=== PATIENT | female | born 1940 | race Caucasian/White ===

== ENCOUNTER 2023-07-15 05:29 | Inpatient (IN) | payer MEDICARE, SELFPAY ==
[2023-07-15] VITALS (7 sets, daily range): BP systolic 124–156; BP diastolic 53–91; PULSE 69–81; RESP 16–18; TEMP 36.6–36.9; O2SAT 94–96; BMI 39.2
[2023-07-15] MEDS: 0.9% Saline Lock 10 ML Syringe IV (05:21)
--- NOTE | 2023-07-15 05:44 | HP.PCM.HOS_ITS ---
HPI - General General Date of Admission: 07/15/23 Date of Service: 07/15/23 Chief Complaint: right hip HPI Narrative JULIET DAVIDSON, is a 83 F with a significant history of hypertension; diabetes mellitus on metformin; history of cardiac disease with repair as a teenager; right hip replacement; and left knee replacements who presents who presented to [facility] with right hip pain. Patient stepped out off her vehicle with her left leg first. Then she attempted to move her right leg out from the vehicle and had a popping sound from her right hip. She then had excruciating pain to her right hip. Imaging at [facility] showed that the patient had a dislocated right hip. [facility] Medical History Diabetes mellitus Hypertension Home Medications atorvastatin 10 mg tablet 10 mg PO DAILY cholesterol 07/15/23 [History Last Taken 07/14/23] hydrochlorothiazide 25 mg tablet 25 mg PO DAILY 07/15/23 [History Last Taken 07/14/23] lisinopril 20 mg tablet 20 mg PO BID hypertension 07/15/23 [History Last Taken 07/14/23] metformin 500 mg tablet 500 mg PO BID 07/15/23 [History Last Taken 07/14/23] metoprolol succinate 100 mg tablet,extended release 24 hr 100 mg PO DAILY 07/15/23 [History Last Taken 07/14/23] Allergy/AdvReac Type Severity Reaction Status Date / Time No Known Allergies Allergy Verified 07/15/23 04:38 Family History Other Heart disease Surgical History History of arthroplasty of left knee S/P total right hip arthroplasty Social History Smoking Status: Never smoker ROS ROS Narrative Pertinent positives and pertinent negatives as noted in HPI. All other systems were reviewed and are negative Vital Signs Vital Signs Vital Signs: 07/15/23 04:30 07/15/23 04:34 Temperature 98.1 F Temperature Source Oral Pulse Rate 78 Respiratory Rate 18 Respiratory Effort Normal Non-Labored Respiratory Depth Normal Respiratory Pattern Normal Blood Pressure 156/89 H Blood Pressure Mean 111 Blood Pressure Source Monitor Blood Pressure Position Semi-Fowlers Blood Pressure Location Right Arm Pulse Ox 94 Oxygen Delivery Method Room Air Room Air Weight Weight: 97.2 kg Body Mass Index (BMI) 39.2 Physical Exam Narrative Physical exam: General: Well-nourished, well-developed. Head: Normocephalic, atraumatic, no tenderness Eyes: Vision is grossly intact. EOMI ENT, no trauma, moist mucous membranes, no rhinorrhea Neck: Nontender, No thyromegaly. CVS: Regular rate and rhythm. S1-S2 present. No murmur, gallop or rub. Respiratory : clear to auscultation bilaterally, chest wall nontender Abdomen: Soft, nontender, nondistended, normal bowel sounds, no masses : Deferred Back: Nontender, no CVA tenderness Extremities: Nontender bilateral hip Skin: Normal color, no trauma, abrasions Neuro: Alert, oriented, cranial nerves II through XII grossly intact. Psychiatry: Normal mood. Normal affect. Not depressed. Not anxious. Assessment & Plan Assessment/Plan (1) Hip dislocation, right: QUALIFIERS: Encounter type: initial encounter Qualified Code(s): S73.004A - Unspecified dislocation of right hip, initial encounter (2) Diabetes mellitus, type 2: QUALIFIERS: Diabetes mellitus detention insulin use: without detention use Diabetes mellitus complication status: without complication Qualified Code(s): E11.9 - Type 2 diabetes mellitus without complications (3) Hypertension: QUALIFIERS: Hypertension type: primary hypertension Qualified Code(s): I10 - Essential (primary) hypertension PLAN: Plan Right hip dislocation Inpatient consult for orthopedic surgery. Morphine IV and oxycodone as needed ordered. Tylenol as needed ordered. Bowel protocol and antiemetics IV ordered. Keep n.p.o. While n.p.o. lactated Ringer's ordered. Check vitamin D level. ACS NSQIP surgical risk calculator with below surgical risk. Hypertension Blood pressure is not within goal Home blood pressure medication continued. Trend blood pressure and adjust blood pressure medications. Diabetes Mellitus Monitor Accu-Cheks Correction scale insulin ordered. DVT prophylaxis SCD Time spent in the patient's overall evaluation,decision-making process, review of diagnostic data, adjustment of management, discussion with other providers, nursing and ancillary staff involved in patient's care documentation, 50 minutes. Charges/Coding Visit Charges Inpatient E&M: 36458 Init Hosp L2
[2023-07-15] MEDS: Acetaminophen 325 MG Tablet 650 MG PO ×2 (06:30→20:38)
[2023-07-15] MEDS: oxyCODONE 5 MG Tablet PO (06:30)
[2023-07-15] MEDS: 0.9% Normal Saline (1000mL) 1,000 ML 75 ML IV ×2 (06:31→20:38)
[2023-07-15] MEDS: Insulin Lispro 100 UNIT/ML INSULN.PEN SC ×3 (06:45→20:37)
[2023-07-15 07:37] LABS: AST(SGOT) 22 U/L (15-37); Alanine Aminotransfer ALT/SGPT 19 U/L (13-56); Albumin, Serum 3.1 g/dL (3.2-5.0); Alkaline Phosphatase 72 U/L (45-117); Anion Gap 5 (5-15); BUN 14 mg/dL (7-18); Calcium,Total 8.5 mg/dL (8.5-10.1); Chloride 107 mmol/L (98-107); Creatinine, Serum 0.87 mg/dL (0.55-1.02); EST Glomerular Filtration Rate 66 mL/min (>60); Est Glom Filt Rate - Afr Amer 79 mL/min (>60); Estimated Creatinine Clearance 38.07 ml/min; Globulin 3.2 g/dL (2.2-4.2); Glucose 156 mg/dL (74-106); Potassium 4.1 mmol/L (3.5-5.1); Protein, Total 6.3 g/dL (6.4-8.2); Sodium Level 138 mmol/L (136-145)
--- NOTE | 2023-07-15 07:51 | PCM.PN.HOSP ---
Subjective Subjective Was try to get out of her car and her left leg was already out but then her right hip just dislocated. The hip was replaced about 12 years ago. Is never had this from before. Objective Data Objective Data Vital Signs: Vital Signs Temp Pulse Resp BP Pulse Ox O2 Del Method 36.7 C 78 18 156/89 H 94 Room Air 07/15/23 04:30 07/15/23 04:30 07/15/23 04:30 07/15/23 04:30 07/15/23 04:30 07/15/23 04:34 Oxygen Delivery Method Room Air Weight: 97.2 kg Body Mass Index (BMI) 39.2 Lab / Micro Data 07/15/23 06:57 Labs: Laboratory Results - last 24 hr 07/15/23 06:57: Sodium 138, Potassium 4.1, Chloride 107, Carbon Dioxide 26.0, Anion Gap 5, BUN 14, Creatinine 0.87, Estim Creat Clear Calc 38.07, Est GFR (MDRD) Af Amer 79, Est GFR (MDRD) Non-Af 66, BUN/Creatinine Ratio 16.0, Glucose 156 H, Calcium 8.5, Total Bilirubin 0.40, AST 22, ALT 19, Alkaline Phosphatase 72, Total Protein 6.3 L, Albumin 3.1 L, Globulin 3.2, Albumin/Globulin Ratio 1.0 Physical Exam Const alert and no apparent distress HEENT head/scalp atraumatic Neuro no focal motor deficits Sensorium / Orientation: awake and alert Assessment & Plan Assessment/Plan (1) Hip dislocation, right: QUALIFIERS: Encounter type: initial encounter Qualified Code(s): S73.004A - Unspecified dislocation of right hip, initial encounter (2) Diabetes mellitus, type 2: QUALIFIERS: Diabetes mellitus complication status: without complication 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 Surgical intervention pending. Morphine IV and oxycodone as needed ordered. Tylenol as needed ordered. Bowel protocol and antiemetics IV ordered. Keep n.p.o. While n.p.o. lactated Ringer's ordered. Vitamin D level pending Hypertension Blood pressure is not within goal Home blood pressure medication continued. Trend blood pressure and adjust blood pressure medications. Diabetes Mellitus Monitor Accu-Cheks Correction scale insulin ordered. DVT prophylaxis SCD Charges/Coding Visit Charges Inpatient E&M: 25093 Subs Hosp L1
[2023-07-15 08:07] LABS: Bedside Glucose 158 mg/dL (74-106)
[2023-07-15] MEDS: Metoprolol(XL)Succ 100 MG Tablet PO (12:00)
[2023-07-15] MEDS: Lisinopril 20 MG Tablet PO ×2 (12:02→20:38)
[2023-07-15] MEDS: Senna/Docusate Sodium 1 Tablet 2 TABLET PO ×2 (12:02→20:39)
[2023-07-15] MEDS: hydroCHLOROthiazide 25 MG Tablet PO (12:02)
[2023-07-15 13:19] LABS: Bedside Glucose 281 mg/dL (74-106)
--- NOTE | 2023-07-15 14:20 | CASEMGMT ---
RN ABEBA Face to Face with patient for initial transition planning/care coordination assessment. RN CM introduced self and role at [facility]. Patient lying in bed, alert and oriented. Patient willing to participate in assessment and is able to answer all questions appropriately. Care providers, pharmacy, and demographics verified. Patient wishes to discharge home with possible HHC vs SNF pending progress with therapy. Patient states she has no further needs or concerns at this time. CM to follow for discharge planning needs that may arise. PCP: Jason Turner Medical Specialists: none [facility] [place] Insurance: [employer] [facility] Prescription Benefit: yes Living Will/HPOA: yes son Brandon Wilson LNOK: , son, daughter Living Arrangements: Patient lives with in a single story home with 3 steps and railing x2 to enter. Patient was independent at home. Transportation: self, DME/HHC: Patient has walk in tub, raised toilet, cane, grab bars, walker at home. No previous HHC. Patient has been to [facility] in the past and is preferred SNF if needed at discharge. Disposition Plan: TBD, HHC vs SNF pending progress with therapy after surgery. Tayla AMAYA, RN, CM
--- NOTE | 2023-07-15 15:51 | CON.PCM.OR_ITS ---
HPI Consult Data Date of Consult: 07/15/23 PCP / Referring MD: LIYAH FARRELL HPI Narrative Reason for Consultation: Right hip pain HPI Narrative: JULIET DAVIDSON, is a 83 F who presents with right hip pain. Patient was seen and evaluated last evening in the emergency department. She is a 3 times dislocator. She had multiple times in the emergency department today reduce her head. She also has a concomitant greater trochanteric hip fracture on this dislocation. X-rays from 2020 reviewed showing no evidence of greater trochanteric hip fracture at that time. Patient's last 2 dislocations were associated with atraumatic hip flexion activities. Last evening she was getting out of a car when she lifted her leg to clear the rail and had a dislocation. She denies any numbness and tingling today. She is comfortable sitting up in bed but does report pain in her buttocks. She denies any associated numbness and tingling. Based on her failed dislocation attempts we elected to do a open reduction with concerns that there is soft tissue blocking the reduction related to her greater trochanteric fracture. [facility] Medical History (Updated 07/15/23 @ 16:[address] Edison Darby MD) Diabetes mellitus Greater trochanteric bursitis of right hip Hypertension Home Medications atorvastatin 10 mg tablet 10 mg PO DAILY cholesterol 07/15/23 [History Last Taken 07/14/23] hydrochlorothiazide 25 mg tablet 25 mg PO DAILY 07/15/23 [History Last Taken 07/14/23] lisinopril 20 mg tablet 20 mg PO BID hypertension 07/15/23 [History Last Taken 07/14/23] metformin 500 mg tablet 500 mg PO BID 07/15/23 [History Last Taken 07/14/23] metoprolol succinate 100 mg tablet,extended release 24 hr 100 mg PO DAILY 07/15/23 [History Last Taken 07/14/23] Allergy/AdvReac Type Severity Reaction Status Date / Time No Known Allergies Allergy Verified 07/15/23 04:38 Family History Other Heart disease Surgical History History of arthroplasty of left knee S/P total right hip arthroplasty Social History Smoking Status: Never smoker ROS Constitutional Constitutional: Reports systems reviewed and no addt'l complaints, except as documented Eyes Eyes: Reports systems reviewed and no addt'l complaints, except as documented ENT HEENT: Reports systems reviewed and no addt'l complaints, except as documented Cardiovascular Cardiovascular: Reports systems reviewed and no addt'l complaints, except as do cumented Respiratory/Chest Respiratory/Chest: Reports systems reviewed and no addt'l complaints, except as documented Gastrointestinal Gastrointestinal: Reports systems reviewed and no addt'l complaints, except as documented Genitourinary Genitourinary: Reports systems reviewed and no addt'l complaints, except as documented Musculoskeletal Musculoskeletal: Reports systems reviewed and no addt'l complaints, except as documented Integumentary Integumentary: Reports systems reviewed and no addt'l complaints, except as documented Neurologic Neurologic: Reports systems reviewed and no addt'l complaints, except as documented Psychiatric Psychiatric: Reports systems reviewed and no addt'l complaints, except as documented Endocrine Endocrinology: Reports systems reviewed and no addt'l complaints, except as documented Hematologic/Lymphatic Hematologic/Lymphatic: Reports systems reviewed and no addt'l complaints, except as documented Allergic/Immunologic Allergic/Immunologic: Reports systems reviewed and no addt'l complaints, except as documented Vital Signs Vital Signs Vital Signs: 07/15/23 04:30 07/15/23 04:34 07/15/23 08:05 Temperature 98.1 F Temperature Source Oral Pulse Rate 78 Pulse Strength Normal (2+) Respiratory Rate 18 Respiratory Effort Normal Non-Labored Respiratory Depth Normal Respiratory Pattern Normal Blood Pressure 156/89 H Blood Pressure Mean 111 Blood Pressure Source Monitor Blood Pressure Position Semi-Fowlers Blood Pressure Location Right Arm Pulse Ox 94 Oxygen Delivery Method Room Air Room Air 07/15/23 08:06 07/15/23 10:15 07/15/23 12:00 Temperature 98.4 F Temperature Source Oral Pulse Rate 69 81 Pulse Strength Respiratory Rate 16 Respiratory Effort Normal Non-Labored Respiratory Depth Normal Respiratory Pattern Normal Blood Pressure 124/58 H 131/53 H Blood Pressure Mean 80 Blood Pressure Source Monitor Blood Pressure Position Semi-Fowlers Blood Pressure Location Right Arm Pulse Ox 96 Oxygen Delivery Method Room Air Room Air 07/15/23 14:24 Temperature Temperature Source Pulse Rate Pulse Strength Respiratory Rate Respiratory Effort Respiratory Depth Respiratory Pattern Blood Pressure Blood Pressure Mean Blood Pressure Source Blood Pressure Position Blood Pressure Location Pulse Ox 96 Oxygen Delivery Method Room Air Weight Weight: 214 lb 4.629 oz Body Mass Index (BMI) 39.2 Physical Exam Const alert and oriented x3 General Appearance: cooperative HEENT normocephalic Eyes PERRL Neck no JVD General: trachea midline Resp normal respiratory effort Cardio Cardio Narrative: Regular pulse rate based on pedal pulses GI non-distended GI Narrative: Morbidly obese Extremity Extremity Narrative: Right lower extremity: Shortened externally rotated. Positive dorsiflexion neutral plantarflexion. Neurovascular intact distally. Sensations intact light touch saphenous, sural, superficial peroneal, deep peroneal tibial nerve distributions. Pain with logroll. Skin no rashes or lesions noted and no wounds Neuro moves all extremities Speech: Negative for speech abnormal Psych mental status grossly normal and affect normal Medical Records Data Attestation: I reviewed the patient's medical records Lab / Micro Data Attestation: I reviewed the patient's lab results. 07/15/23 06:57 Labs: Laboratory Results - last 24 hr 07/15/23 06:40: POC Glucose 158 H 07/15/23 06:57: Sodium 138, Potassium 4.1, Chloride 107, Carbon Dioxide 26.0, Anion Gap 5, BUN 14, Creatinine 0.87, Estim Creat Clear Calc 38.07, Est GFR (MDRD) Af Amer 79, Est GFR (MDRD) Non-Af 66, BUN/Creatinine Ratio 16.0, Glucose 156 H, Calcium 8.5, Total Bilirubin 0.40, AST 22, ALT 19, Alkaline Phosphatase 72, Total Protein 6.3 L, Albumin 3.1 L, Globulin 3.2, Albumin/Globulin Ratio 1.0 07/15/23 12:06: POC Glucose 281 H Outside labs reviewed. Hemoglobin 11.7. Absolute lymphocyte 0.7. Remainder of labs in paper chart from outside institution [facility] Outside x-rays were reviewed consistent with posterior superior dislocated total replacement with greater trochanteric hip fracture. Assessment & Plan Assessment/Plan (1) Hip dislocation, right: QUALIFIERS: Encounter type: initial encounter Qualified Code(s): S73.004A - Unspecified dislocation of right hip, initial encounter PLAN: Natural history of the disease process was discussed with the patient. We also discussed this yesterday in the emergency department after a failed dislocation. Based on patient's multiple dislocations and inability to reduce with after 2 episodes of sedation in the emergency department I have discussed with the patient proceeding with open reduction and revision of the hip replacement with open reduction internal fixation of the greater trochanteric hip fracture. We discussed that we will do what is appropriate in order to obtain appropriate stability for the patient I did explain the patient this could be anything from a headliner exchange to removal of the acetabular and femoral components in order to adequately obtain a stable hip on the table. We will proceed with the posterior approach. Risk and benefits of the procedure were discussed patient clean but on tube loss, DVTs, PEs, nervous damage, fashion, the risk of anesthesia include loss of life. I discussed the patient that her albumin is low as well as her absolute lymphocytes. We will need to address his with perioperative nourishment using nourishment shakes. Additionally patient has hemoglobin of 11.7 consistent with anemia of life place patient on ferrous sulfate and folic acid to help address anticipated blood loss. Patient and her who is at bedside demonstrate understanding wish to proceed. There were additional family members in the room agreed with the treatment plan. 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 (3) Hypertension: QUALIFIERS: Hypertension type: primary hypertension Qualified Code(s): I10 - Essential (primary) hypertension PLAN: Per primary service (4) Malnourished: PLAN: Patient's orthopedic nurse and labs including albumin of 3.1 and after the lymphocytes of 0.7 are consistent with preoperative malnourishment we will focus on perioperative shakes. (5) Anemia: PLAN: I am going to start folic acid and ferrous sulfate today. (6) Fracture of greater trochanter of right femur: PLAN: Plan is for ORIF in conjunction with surgery.
[2023-07-15 16:35] LABS: Hemoglobin A1c 6.7 % (3.8-5.6)
[2023-07-15] MEDS: Ferrous Sulfate 325 MG Tablet PO (17:56)
[2023-07-15 18:25] LABS: Bedside Glucose 84 mg/dL (74-106)
[2023-07-15] MEDS: Atorvastatin Calcium 10 MG Tablet PO (20:45)
[2023-07-15] MEDS: Miconazole Nitrate 43 GM Bottle 1 APPLIC TOPICAL (20:45)
[2023-07-15 22:09] LABS: Bedside Glucose 219 mg/dL (74-106)
[2023-07-16] VITALS (13 sets, daily range): BP systolic 116–174; BP diastolic 47–99; PULSE 69–100; RESP 16–20; TEMP 36.1–36.8; O2SAT 93–99; BMI 39.8
[2023-07-16 03:41] LABS: Absolute Lymphocyte Count 1.36 X10^3/uL (0.83-4.51); Basophil# 0.04 X10^3/uL; Basophil% 0.5 % (0-1); Eosinophil# 0.24 X10^3/uL; Eosinophils% 2.8 % (0-5); Hematocrit 35.1 % (37-47); Lymphocyte # 1.36 X10^3/ul (0.83-4.51); Lymphocyte % 16.1 % (19-41); Mean Corp Hgb Conc 31.3 g/dL (32-36); Mean Corpuscular Hgb 30.6 pg (27.0-32.0); Mean Corpuscular Volume 97.8 fL (81-99); Mean Platelet Vol. 8.5 fl (6.2-12.0); Monocyte# 0.78 X10^3/uL; Monocyte% 9.2 % (0-10); NRBC Flagged by Analyzer 0 % (0-5); Neutrophil % 70.9 % (47-70); Platelet Count 295 K/mm3 (150-450); RBC Distribution Width CV 13.2 % (11.6-14.6); RBC Distribution Width SD 47.4 fl (35.1-43.9); Red Blood Count 3.59 M/mm3 (4.2-5.4); White Blood Count 8.5 K/mm3 (4.4-11.0)
[2023-07-16 04:03] LABS: Anion Gap 6 (5-15); BUN 13 mg/dL (7-18); BUN/Creat Ratio 16.5 RATIO (10-20); Calcium,Total 8.6 mg/dL (8.5-10.1); Chloride 108 mmol/L (98-107); Creatinine, Serum 0.79 mg/dL (0.55-1.02); EST Glomerular Filtration Rate 74 mL/min (>60); Est Glom Filt Rate - Afr Amer 90 mL/min (>60); Estimated Creatinine Clearance 33.12 ml/min; Glucose 138 mg/dL (74-106); Potassium 3.9 mmol/L (3.5-5.1); Sodium Level 140 mmol/L (136-145)
[2023-07-16] MEDS: Acetaminophen 325 MG Tablet 650 MG PO (04:35)
--- NOTE | 2023-07-16 08:00 | PN.HOSP_ITS ---
Reason for Visit Reason for Visit: Diagnoses Anemia, unspecified (07/15/23) Type 2 diabetes mellitus without complications (07/15/23) Unspecified protein-calorie malnutrition (07/15/23) Essential (primary) hypertension (07/15/23) Displaced fracture of greater trochanter of right femur, initial encounter for closed fracture (07/15/23) Unspecified dislocation of right hip, initial encounter (07/15/23) Subjective Subjective Feeling well postoperatively. Objective Data Objective Data Vital Signs: Vital Signs Temp Pulse Resp BP Pulse Ox O2 Del Method 36.6 C 78 20 H 144/88 H 95 Room Air 07/16/23 06:00 07/16/23 06:00 07/16/23 06:00 07/16/23 06:00 07/16/23 07:49 07/16/23 07:49 Oxygen Delivery Method Room Air Weight: 98.2 kg Body Mass Index (BMI) 39.8 Intake & Output: Intake and Output for Last 24 Hours 07/14/23 07/15/23 07/16/23 23:59 23:59 23:59 Intake Total 1360 / 1560 200 / 200 Output Total 450 / 1050 1700 / 1700 Balance 910 / 510 -1500 / -1500 Lab / Micro Data 07/16/23 03:30 07/16/23 03:30 Labs: Laboratory Results - last 24 hr 07/15/23 06:40: POC Glucose 158 H 07/15/23 06:57: Hemoglobin A1c 6.7 H 07/15/23 12:06: POC Glucose 281 H 07/15/23 17:38: POC Glucose 84 07/15/23 20:35: POC Glucose 219 H 07/16/23 03:30: WBC 8.5, RBC 3.59 L, Hgb 11.0 L, Hct 35.1 L, MCV 97.8, MCH 30.6, MCHC 31.3 L, RDW Std Deviation 47.4 H, RDW Coeff of Parker 13.2, Plt Count 295, MPV 8.5, Immature Gran % (Auto) 0.500, Neut % (Auto) 70.9 H, Lymph % (Auto) 16.1 L, [place] % (Auto) 9.2, Eos % (Auto) 2.8, Baso % (Auto) 0.5, Absolute Neuts (auto) 6.0, Absolute Lymphs (auto) 1.36, Nucleated RBC % 0, Sodium 140, Potassium 3.9, Chloride 108 H, Carbon Dioxide 26.0, Anion Gap 6, BUN 13, Creatinine 0.79, Estim Creat Clear Calc 33.12, Est GFR (MDRD) Af Amer 90, Est GFR (MDRD) Non-Af 74, BUN/Creatinine Ratio 16.5, Glucose 138 H, Calcium 8.6, Blood Type A POSITIVE, Antibody Screen NEGATIVE Physical Exam Const alert and no apparent distress Extremity Extremity Narrative: Right hip incision with dressing overlying. No surrounding erythema nor bruising noted Neuro Sensorium / Orientation: awake and alert Assessment & Plan Assessment/Plan (1) Hip dislocation, right: QUALIFIERS: Encounter type: initial encounter Qualified Code(s): S73.004A - Unspecified dislocation of right hip, initial encounter PLAN: Right hip dislocation, atraumatic. Inpatient consult for orthopedic surgery. Surgical intervention pending. Morphine IV and oxycodone as needed ordered. Tylenol as needed ordered. Bowel protocol and antiemetics IV ordered. Keep n.p.o. While n.p.o. lactated Ringer's ordered. Vitamin D level pending (2) Protein calorie malnutrition: QUALIFIERS: Protein-calorie malnutrition severity: unspecified severity Qualified Code(s): E46 - Unspecified protein-calorie malnutrition PLAN: Albumin 3.1. Add supplements. PLAN: Plan Chronic conditions: * Hypertension. Elevated. Continue HCTZ, lisinopril, metoprolol succinate * Diabetes Mellitus type 2: fair control. on SSI. resume metformin post- operatively. * obesity class II with BMI 39.8 kg/m2, complicates care and recovery. DVT prophylaxis SCD Charges/Coding Visit Charges Inpatient E&M: 05305 Subs Hosp L1
[2023-07-16] MEDS: Cefazolin 2 GM in 0.9% Normal Saline (100mL Bag) 100 ML IV (08:39)
[2023-07-16] MEDS: TRANEXAMIC ACID 2,000 MG, 0.9% Normal Saline (100mL Bag) 100 ML OPERA.SITE (10:03)
[2023-07-16] MEDS: JPS (Morphine 10mg/ml) OPERA.SITE (10:11)
--- NOTE | 2023-07-16 10:11 | OP.PCM_ITS ---
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 Patient's hip dislocation was entrapped in the proximal musculature complicating reduction even when open. Upon removal of femoral head trunnion was appropriate. Femoral and acetabular components well fixed Surgeon: Edison Darby fitter placer: Jaime Rodriguez Type of Anesthesia: General Anesthesiologist: Osmel Sage Special Medications: 2 g Ancef, 1 g TXA at incision, 1 g TXA closure, 10 mg Decadron, joint cocktail (5 mg Duramorph, 30 mL of 0.5% Ropivicaine, 1000 units of epinephrine, 30 mg of Toradol) Estimated Blood Loss (mL): 300 mL Fluids Replaced: 1000 mL crystalloid Description of Procedure: Implants used: 1. Kevin cobalt-chromium MDM liner alpha code D 2. Kevin X3 MDM insert 38 D 3. [place] cobalt-chromium 22.2 mm femoral head, +8 mm Procedure: On the date of the procedure patient's right hip was marked in the preoperative area. We then again confirmed the consent for the patient as well as risk of the procedure as noted in the consultation from yesterday. Patient demonstrated understanding and wished to proceed. She continues to report no neurologic deficits. At this time patient was then taken back to the operating room where they were transferred the table in the supine position. Anesthesia assumed control the C-spine and airway and remained controlled throughout the remainder of the procedure. At the patient was appropriately anesthetized a Luong catheter was placed due to patient's incontinence concerns for mobility postoperatively. Once the Luong was placed patient was placed in lateral decubitus position. Axillary roll was placed all bony prominences were identified well-padded. Patient was secured to the bed using the pegboard securing her lateral decubitus position. At this time the right lower extremity was then prepped in a sterile fashion while the surgeon scrubbed. Upon reentering the room the right lower extremity was draped in a standard orthopedic fashion. Timeout was called everyone agreed upon the side, the site, the procedure to be performed, patient's identity and antibiotics given. Incision was marked out using the previous incision and extending it proximally and distally along the femoral shaft. Incision was taken down through skin using sharp dissection. Bovie dissection was used to maintain hemostasis we dissected down to the fascia. Once we dissected down to the fascia we cleared the areas that we had a good cuff of tissue anterior and posteriorly to repair appropriately. Fascia was incised inline with the incision and a large amount of serosanguineous fluid was evacuated. Once this was completed we were able to visualize the implants and joint. The hip was superiorly posteriorly dislocated. We attempted a reduction to see what was blocking the reduction and the left liner as well as the abductors which were acting as trying his finger traps as we pulled traction were obstructing the reduction. We carefully loosened up around the head and were able to use a bone hook to get a hold of the femoral neck and reduce the hip. Once it was reduced we were able to flex the hip up to 90 degrees and internally rotate to 45 degrees without dislo cation. We tried to hyper flex the hip beyond 90 degrees and again we are not able to fully dislocate the hip. However, there was visible where and breakdown of the acetabular lip associated with chronic polyethylene wear. Based on this we elected to proceed with our plan. Additionally upon entering the joint we were able to see that the greater trochanteric fracture appeared to be of significant age. There is significant synovium around the fracture site and sclerosis of the bony fragments. We could not pull them posteriorly and reduce them. We placed these aside as we went on to focus on the hip for now. We again dislocated the hip and dissociated the trunnion using a bone tamp. We inspected the trunnion and it appeared appropriate to continue using. The femoral stem was also well fixed. We tested the acetabulum and it was well fixed. We then retracted the femur out of the way and were able to use an osteotome to remove the femoral lining. Synovium from behind the lining was debrided. We then placed a trial MDM liner and a +8 mm 38 mm head for MDM trials. This gave us good stable hip even with the trochanters not reduced. We are able to flex the hip to 90 degrees and internally rotate to 60 degrees without dislocation. We able to Hyperflex the hip without dislocation of the hip. We needed the bone hook in order to help assist with dislocation. Once we had the dislocated again we removed the trial components. The wound was maria t irrigated out with 6 L of normal saline under low-pressure lavage. Acetabulum was again exposed after this and the MDM liner was opened and impacted into place. Locking mechanism was verified using a hemostat. Once this was completed we directed our attention back to the femoral head. Trunnion was dried off and the MDM femoral head was assembled and impacted into place. Moore taper was adequately engaged and the hip was reduced using a pusher. We again were able to flex the hip up to 90 degrees and internally rotate to 60 degrees dislocation we were able to Hyperflex the hip without dislocation. Leg lengths appeared appropriate. Again we removed an 8 mm head and replace it with another 8 mm head. Once this was completed we directed our attention to the greater trochanteric fragment. This could be reduced. We used a small trochanteric plate. We passed 2 cables below the lesser trochanter. We carefully tightened this down and reduce the main greater trochanteric fragment with the cables and plate. Once this was completed cables were crimped and cut. Hip was taken again through range of motion maintaining stability. At this time we began closure. A 3-minute dilute Betadine lavage was performed this was followed by 1 minute chlorhexidine lavage. Copious amounts normal saline were used to irrigate out the joint. We then did a 1 minute TXA lavage. Fascia was closed with #1 Vicryl interrupted sutures to start. We then ran a #1 strata fix to close the fascia watertight. Once this was done deep tissues were closed with #1 Vicryl. Skin was closed with #1 Vicryl and final skin closure was done with nylon sutures. Patient was then awakened by anesthesia and transferred to the PACU for recovery in stable condition. Postoperative plan: Patient will be weightbearing as tolerated but we will require the use of a walker for 6 weeks to limit abductor strain. Aspirin 81 mg p.o. twice daily for 4 weeks. Follow-up in the office in 2 weeks for wound check and x-rays. Strict posterior hip precautions for 6 weeks. During the course of the procedure the physician security messenger (PE) played a vital role. Their intimate knowledge of my steps in the procedure aided in safe and expedient completion of the procedure. The PE played a vital rolls in positioning particularly in obtaining the appropriate lateral decubitus position. The PE was also vital in the retraction of soft tissues during the exposure and especially the femoral work as this is a vital part of the procedure to prevent complications and fractures. The PE was also vital and protecting soft tissues during times of bony cuts and reaming. He also played a vital role in closure with my direct supervision. The PE was also important during reduction and dislocation of the joint and trials intraoperatively.
--- NOTE | 2023-07-16 10:28 | RAD_ITS ---
EXAM: XR RIGHT HIP WITH PELVIS WHEN PERFORMED, 2 OR 3 VIEWS CLINICAL INDICATION: Post Op -- AP both hips on single virginie/lateral of op hip PACU TECHNIQUE: Two or three views of the right hip with pelvis when performed. COMPARISON: 07/14/2023. FINDINGS: BONES/JOINTS: Successful reduction of dislocated right metallic hip arthroplasty. Postoperative air in the right hip following placement of metallic wires around the femoral component of the right metallic hip arthroplasty. No displaced fracture. No destructive or sclerotic lesions. Note that overlapping bowel shadows may however obscure fine detail. Sacroiliac joint is unremarkable. No widening of the pubic symphysis. SOFT TISSUES: Unremarkable. No soft tissue swelling or gas. RAD/Hip Min 2 Views (Portable) IMPRESSION: Normal postoperative air and soft tissue swelling of right metallic hip arthroplasty with successful reduction of the dislocated femoral component of the right metallic hip arthroplasty. Electronically Signed: Desmond East MD at 11:33 EST ,
[2023-07-16] MEDS: 0.9% Normal Saline (1000mL) 1,000 ML 15 ML IV (11:32)
[2023-07-16 11:44] LABS: Bedside Glucose 198 mg/dL (74-106)
[2023-07-16] MEDS: hydroCHLOROthiazide 25 MG Tablet PO (13:07)
[2023-07-16] MEDS: Lisinopril 20 MG Tablet PO ×2 (13:07→22:19)
[2023-07-16] MEDS: Metoprolol(XL)Succ 100 MG Tablet PO (13:07)
[2023-07-16] MEDS: Atorvastatin Calcium 10 MG Tablet PO ×2 (13:07→22:19)
[2023-07-16] MEDS: Acetaminophen 500 MG Tablet 1000 MG PO ×2 (13:08→22:13)
[2023-07-16] MEDS: Ferrous Sulfate 325 MG Tablet PO ×2 (13:08→17:35)
[2023-07-16] MEDS: Insulin Lispro 100 UNIT/ML INSULN.PEN SC ×3 (13:10→22:22)
[2023-07-16 14:58] LABS: Bedside Glucose 219 mg/dL (74-106)
[2023-07-16] MEDS: Cefazolin 1 GM/50 ML BAG IV (17:52)
[2023-07-16 21:19] LABS: Bedside Glucose 209 mg/dL (74-106)
[2023-07-16] MEDS: Miconazole Nitrate 43 GM Bottle 1 APPLIC TOPICAL (22:11)
[2023-07-16] MEDS: Aspirin 81 MG TAB.CHEW PO (22:12)
[2023-07-16] MEDS: 0.9% Normal Saline (1000mL) 1,000 ML 75 ML IV (22:16)
[2023-07-16] MEDS: Senna/Docusate Sodium 1 Tablet 2 TABLET PO (22:18)
[2023-07-16 23:22] LABS: Bedside Glucose 222 mg/dL (74-106)
[2023-07-17] VITALS (8 sets, daily range): BP systolic 119–160; BP diastolic 55–81; PULSE 61–95; RESP 16–20; TEMP 36.5–37.3; O2SAT 95–99
[2023-07-17] MEDS: Cefazolin 1 GM/50 ML BAG IV (00:23)
[2023-07-17] MEDS: Acetaminophen 500 MG Tablet 1000 MG PO ×3 (06:20→21:23)
[2023-07-17] MEDS: 0.9% Saline Lock 10 ML Syringe IV ×2 (06:32→21:20)
--- NOTE | 2023-07-17 06:47 | PCM.PN.ORT ---
Subjective Subjective The patient was sitting in bed upon examination. Patient denies any chest pain, shortness of breath, dizziness, lightheadedness, nausea or vomiting, or calf pain. Pain is controlled on medications. No adverse overnight events. Patient overall is doing well this morning. She has no complaints this morning. She states she has been up at the bedside chair and walking with walker. She has not participated in physical therapy yet. Patient does live home with her . Plan is for patient to go home versus possible care home facility. She states she would like to go to [facility] if she needs to go to care home facility. Patient has had previous right total hip arthroplasty in the past by Dr. Ronald Wilson. Patient has had previous dislocations in which she has gone to the emergency room. This last dislocation was unable to be reduced. Patient currently denies any numbness and tingling into the right lower extremity. Objective Data Objective Data Vital Signs: Vital Signs Temp Pulse Resp BP Pulse Ox O2 Del Method 98.1 F 66 18 143/69 H 99 Room Air 07/17/23 06:13 07/17/23 06:13 07/17/23 06:13 07/17/23 06:13 07/17/23 06:13 07/17/23 06:13 Oxygen Delivery Method Room Air Weight: 98.2 kg Body Mass Index (BMI) 39.8 Intake & Output: Intake and Output for Last 24 Hours 07/15/23 07/16/23 07/17/23 23:59 23:59 23:59 Intake Total 1360 / 1560 2108.00 / 2108.00 668.75 / 668.75 Output Total 450 / 1050 2900 / 3000 250 / 250 Balance 910 / 510 -792.00 / -892.00 418.75 / 418.75 Lab / Micro Data 07/16/23 03:30 07/16/23 03:30 Labs: Laboratory Results - last 24 hr 07/16/23 11:07: POC Glucose 198 H 07/16/23 12:56: POC Glucose 219 H 07/16/23 17:34: POC Glucose 209 H 07/16/23 22:10: POC Glucose 222 H Radiography Diagnostic Testing: Radiology Impression Hip X-Ray 07/16/23 10:28 IMPRESSION: Normal postoperative air and soft tissue swelling of right metallic hip arthroplasty with successful reduction of the dislocated femoral component of the right metallic hip arthroplasty. Electronically Signed: Desmond East MD at 11:33 EST , Physical Exam Narrative Vital signs stable and afebrile. Patient is able to plantarflex and dorsiflex actively. Sensation is intact to light touch to saphenous, sural, superficial and deep peroneal, and tibial distribution. Dressing is clean dry and intact. Negative Homans bilaterally, negative signs and symptoms of DVT. Imaging studies: X-rays were reviewed which reveals stable revision right total hip arthroplasty with open reduction internal fixation nonunion greater trochanteric fracture with cables in place. Const alert, oriented x3 and no apparent distress Assessment & Plan Assessment/Plan (1) History of revision of total replacement of right hip joint: PLAN: 1. S/P right posterior total hip revision acetabular and femoral components with open reduction internal fixation right greater trochanteric nonunion POD #1 2. Continue Pain Medications: Tylenol and oxycodone as needed for pain control 3. DVT Prophylaxis: Take 81 mg aspirin twice daily for 4 weeks postoperatively for DVT prophylaxis. Patient denies past history of DVT or pulmonary embolism 4. PT/OT: Weightbearing as tolerated with walker. Patient is to continue with the walker for 6 weeks postoperatively to avoid abductor strain. Patient will also follow strict posterior hip precautions for 6 weeks postoperatively. 5. No current lab work available to review this morning 6. Continue postoperative medical treatment per medicine 7. Encouraged Incentive Spirometry 8. Disposition: Patient overall is doing well from orthopedic standpoint this morning. Appreciate recommendations from physical therapy for appropriate discharge planning. Patient does live home with her and will require walker for 6 weeks postoperatively with strict posterior hip dislocation precautions. Plan will be for possible home health versus care home facility dependent upon assessment from therapy. From orthopedic standpoint patient will continue with Tylenol and oxycodone as needed for pain control. Recommend aspirin 81 mg twice daily for 4 weeks postoperatively for DVT prophylaxis. Patient denies past history of DVT or pulmonary embolism. The Mepilex dressing will remain on for 5 days postoperatively. Dressing can be removed on July 21, 2023. Patient is able to shower and get the dressing wet as long as it remains intact. She is not to submerge underwater for 6 weeks postoperatively. Once removal of the dressing only apply gentle soap and water over the incision. She was instructed not to use any ointments, salves, topicals, Neosporin for 6 weeks postoperatively. Patient will require follow-up with [facility] in 2 weeks for follow-up x-rays and removal of sutures. I did discuss with the charge nurse to relay information for appropriate scheduling. Once patient is medically stable and discharge planning has been established from an orthopedic standpoint we are okay with discharge. Appreciate consultation with this patient from orthopedic standpoint. If there are any concerns or questions please reach out to orthopedics. I have reviewed the [place] Automated Rx Reporting System (OARRS) report for this patient for refill pattern and other prescriber involvement as part of the appropriate surveillance for the provision of acute and chronic controlled medications. The report was requested and reviewed on the date of this entry and was considered in the prescribing process. This dictation was created using voice recognition software. Phonetic and/or grammatical errors may exist. (2) Fracture of greater trochanter of right femur: (3) Hip dislocation, right: QUALIFIERS: Encounter type: initial encounter Qualified Code(s): S73.004A - Unspecified dislocation of right hip, initial encounter
[2023-07-17 06:51] LABS: Hematocrit 30.3 % (37-47); Hemoglobin 9.6 g/dL (12.0-15.0); Mean Corp Hgb Conc 31.7 g/dL (32-36); Mean Corpuscular Volume 97.7 fL (81-99); Platelet Count 285 K/mm3 (150-450); RBC Distribution Width CV 13.3 % (11.6-14.6); RBC Distribution Width SD 47.5 fl (35.1-43.9); White Blood Count 11.9 K/mm3 (4.4-11.0)
[2023-07-17 07:12] LABS: Bedside Glucose 122 mg/dL (74-106)
[2023-07-17 07:28] LABS: Anion Gap 9 (5-15); BUN 17 mg/dL (7-18); BUN/Creat Ratio 17.7 RATIO (10-20); Calcium,Total 8.3 mg/dL (8.5-10.1); Chloride 108 mmol/L (98-107); Creatinine, Serum 0.96 mg/dL (0.55-1.02); EST Glomerular Filtration Rate 59 mL/min (>60); Est Glom Filt Rate - Afr Amer 71 mL/min (>60); Estimated Creatinine Clearance 32.92 ml/min; Glucose 128 mg/dL (74-106); Potassium 4.1 mmol/L (3.5-5.1); Sodium Level 140 mmol/L (136-145)
[2023-07-17] MEDS: Folic Acid 1 MG Tablet PO (08:09)
[2023-07-17] MEDS: Aspirin 81 MG TAB.CHEW PO ×2 (08:09→17:25)
[2023-07-17 08:56] LABS: Vitamin D,25 Hydroxy 32.6 ng/mL
[2023-07-17] MEDS: Miconazole Nitrate 43 GM Bottle 1 APPLIC TOPICAL ×2 (10:33→21:22)
[2023-07-17] MEDS: Metoprolol(XL)Succ 100 MG Tablet PO (10:39)
[2023-07-17] MEDS: hydroCHLOROthiazide 25 MG Tablet PO (10:39)
[2023-07-17] MEDS: Lisinopril 20 MG Tablet PO ×2 (10:39→21:24)
[2023-07-17] MEDS: Senna/Docusate Sodium 1 Tablet 2 TABLET PO ×2 (10:39→21:23)
[2023-07-17 12:00] LABS: Bedside Glucose 235 mg/dL (74-106)
[2023-07-17] MEDS: Ferrous Sulfate 325 MG Tablet PO ×2 (12:30→17:25)
[2023-07-17] MEDS: Insulin Lispro 100 UNIT/ML INSULN.PEN SC (12:32)
--- NOTE | 2023-07-17 12:32 | CASEMGMT ---
Discharge Planning A list of?SNF providers including quality and resource use data and consistent with the patient's preferred geographic region, medical needs, and insurance network was created in [employer] Guide.? This list was provided to the SW. Ana Laura Flower Discharge Planning Asst.
--- NOTE | 2023-07-17 15:43 | CASEMGMT ---
Social Work SW met with pt, pt's and pt's daughter and introduced self and role of SW. SW discussed pt's ability with therapy today and pt feels she needs short term rehab prior to returning home. A list of SNF providers including quality and resource use data and consistent with the patient?s preferred geographic region, medical needs, and insurance network were provided from the [facility] Guide. Pt's preferred provider is [facility]. Referral to be sent to [facility] and precert will be needed prior to discharge. DC assistant teacher primary updated. Plan: [facility], pending acceptance and precert ONI Crow
--- NOTE | 2023-07-17 16:17 | CASEMGMT ---
Discharge Planning Referral sent to [facility] via [facility]. Ana Laura Flower, Discharge Planning Asst.
[2023-07-17 17:28] LABS: Bedside Glucose 133 mg/dL (74-106)
--- NOTE | 2023-07-17 17:48 | PCM.PN.HOSP ---
Reason for Visit Reason for Visit: Diagnoses Anemia, unspecified (07/15/23) Type 2 diabetes mellitus without complications (07/15/23) Unspecified protein-calorie malnutrition (07/15/23) Essential (primary) hypertension (07/15/23) Displaced fracture of greater trochanter of right femur, initial encounter for closed fracture (07/15/23) Unspecified dislocation of right hip, initial encounter (07/15/23) Presence of right artificial hip joint (07/15/23) Subjective Subjective Patient was seen and examined today, her was in the room at the time my examination, we still have not heard from her insurance carrier about whether her request for skilled rehab services has been approved. Patient does not complain of any hip discomfort to this examiner today. Objective Data Objective Data Vital Signs: Vital Signs Temp Pulse Resp BP Pulse Ox O2 Del Method 99.1 F 95 16 160/63 H 95 Room Air 07/17/23 15:19 07/17/23 15:19 07/17/23 15:19 07/17/23 15:19 07/17/23 15:19 07/17/23 15:19 Oxygen Delivery Method Room Air Weight: 98.2 kg Body Mass Index (BMI) 39.8 Intake & Output: Intake and Output for Last 24 Hours 07/15/23 07/16/23 07/17/23 23:59 23:59 23:59 Intake Total 1360 / 1560 2108.00 / 2108.00 668.75 / 668.75 Output Total 450 / 1050 2900 / 3000 750 / 750 Balance 910 / 510 -792.00 / -892.00 -81.25 / -81.25 Lab / Micro Data 07/17/23 05:50 07/17/23 05:50 Labs: Laboratory Results - last 24 hr 07/15/23 06:57: Vitamin D 25-Hydroxy 32.6 07/16/23 17:34: POC Glucose 209 H 07/16/23 22:10: POC Glucose 222 H 07/17/23 05:50: WBC 11.9 H, RBC 3.10 L, Hgb 9.6 L, Hct 30.3 L, MCV 97.7, MCH 31.0, MCHC 31.7 L, RDW Std Deviation 47.5 H, RDW Coeff of Parker 13.3, Plt Count 285, MPV 9.0, Sodium 140, Potassium 4.1, Chloride 108 H, Carbon Dioxide 23.0, Anion Gap 9, BUN 17, Creatinine 0.96, Estim Creat Clear Calc 32.92, Est GFR (MDRD) Af Amer 71, Est GFR (MDRD) Non-Af 59 L, BUN/Creatinine Ratio 17.7, Glucose 128 H, Calcium 8.3 L 07/17/23 06:23: POC Glucose 122 H 07/17/23 11:41: POC Glucose 235 H 07/17/23 17:10: POC Glucose 133 H Physical Exam Const alert, oriented x3, no apparent distress and healthy appearing General Appearance: cooperative, well kempt and well developed Orientation / Consciousness: awake, oriented to person, oriented to place and oriented to time HEENT normocephalic, head/scalp atraumatic and moist oral mucous membranes Eyes PERRL, EOMs intact bilaterally and conjunctivae normal Neck supple, no JVD, thyroid normal and no carotid bruits General: trachea midline Resp normal respiratory effort, no retractions, no use of accessory muscles and clear to auscultation bilaterally Auscultation: Negative for rales, rhonchi or wheezes Cardio regular rate, regular rhythm, S1 normal heart sound, S2 normal heart sound, no murmurs, no rub and no gallops GI normal to inspection, nondistended, normoactive bowel sounds, soft to palpation, non-tender and non-distended Neuro oriented x3, CN's II-XII intact bilaterally, moves all extremities, no focal motor deficits and no sensory deficits noted Sensorium / Orientation: awake and alert Speech: speech normal Psych affect normal Assessment & Plan Assessment/Plan (1) Instability of right hip joint: PLAN: Plan 1. 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-postop day #1 right posterior total hip revision acetabular and femoral components-patient will continue to be seen by PT and OT, orthopedic surgery participating in her care, she will need placement for short-term skilled services, this is pending at this time #2 essential hypertension-continue hydrochlorothiazide, lisinopril, and metoprolol #3 type 2 diabetes-patient will continue on metformin, blood sugars will be monitored Malnutrition does not exist and has been ruled out Total clinical time spent by myself addressing the patient's medical issues, reviewing all of her data, and collaborating with patient's care team: 35 minutes Charges/Coding Visit Charges Inpatient E&M: 19938 Subs Hosp L2
[2023-07-17] MEDS: Atorvastatin Calcium 10 MG Tablet PO (21:23)
[2023-07-17 22:28] LABS: Bedside Glucose 146 mg/dL (74-106)
[2023-07-18 02:20] VITALS: BP 146/54; PULSE 69; RESP 20; TEMP 36.8; O2SAT 97
[2023-07-18] MEDS: Insulin Lispro 100 UNIT/ML INSULN.PEN SC ×3 (06:34→21:00)
[2023-07-18] MEDS: Acetaminophen 500 MG Tablet 1000 MG PO ×3 (06:35→20:59)
[2023-07-18 07:10] LABS: Bedside Glucose 170 mg/dL (74-106)
[2023-07-18 07:25] VITALS: BP 104/71; PULSE 74; RESP 18; TEMP 36.6; O2SAT 97
[2023-07-18] MEDS: Aspirin 81 MG TAB.CHEW PO ×2 (07:39→16:14)
[2023-07-18] MEDS: metFORMIN HCl 500 MG Tablet PO ×2 (07:39→16:14)
[2023-07-18] MEDS: Folic Acid 1 MG Tablet PO (07:39)
[2023-07-18] MEDS: hydroCHLOROthiazide 25 MG Tablet PO (09:14)
[2023-07-18] MEDS: Miconazole Nitrate 43 GM Bottle 1 APPLIC TOPICAL ×2 (09:14→22:18)
[2023-07-18 09:15] VITALS: PULSE 76
[2023-07-18] MEDS: Metoprolol(XL)Succ 100 MG Tablet PO (09:15)
[2023-07-18] MEDS: Lisinopril 20 MG Tablet PO ×2 (09:15→20:59)
--- NOTE | 2023-07-18 11:17 | CASEMGMT ---
Social Work [facility] accepted pt and precert has been started. Pt notified and agreeable with dc plan. Plan: [facility], pending precert Michael Crow
[2023-07-18] MEDS: Ferrous Sulfate 325 MG Tablet PO ×2 (11:29→16:14)
[2023-07-18 11:48] LABS: Bedside Glucose 207 mg/dL (74-106)
[2023-07-18 13:45] VITALS: BP 140/67; PULSE 96; RESP 18; TEMP 36.6; O2SAT 95
--- NOTE | 2023-07-18 16:18 | PN.HOSP_ITS ---
Reason for Visit Reason for Visit: Diagnoses Anemia, unspecified (07/15/23) Type 2 diabetes mellitus without complications (07/15/23) Unspecified protein-calorie malnutrition (07/15/23) Essential (primary) hypertension (07/15/23) Other instability, right hip (07/15/23) Displaced fracture of greater trochanter of right femur, initial encounter for closed fracture (07/15/23) Unspecified dislocation of right hip, initial encounter (07/15/23) Presence of right artificial hip joint (07/15/23) Subjective Subjective Patient was seen and examined today, she does not complain of any incisional pain to this examiner. We have still not heard from her insurance carrier about approving her [facility] facility transfer. Objective Data Objective Data Vital Signs: Vital Signs Temp Pulse Resp BP Pulse Ox O2 Del Method 97.8 F 96 18 140/67 H 95 Room Air 07/18/23 13:45 07/18/23 13:45 07/18/23 13:45 07/18/23 13:45 07/18/23 13:45 07/18/23 13:50 Oxygen Delivery Method Room Air Weight: 98.2 kg Body Mass Index (BMI) 39.8 Intake & Output: Intake and Output for Last 24 Hours 07/16/23 07/17/23 07/18/23 23:59 23:59 23:59 Intake Total 2108.00 / 2108.00 868.75 / 868.75 500 / 500 Output Total 2900 / 3000 750 / 750 Balance -792.00 / -892.00 118.75 / 118.75 500 / 500 Lab / Micro Data 07/17/23 05:50 07/17/23 05:50 Labs: Laboratory Results - last 24 hr 07/17/23 17:10: POC Glucose 133 H 07/17/23 21:18: POC Glucose 146 H 07/18/23 06:32: POC Glucose 170 H 07/18/23 11:25: POC Glucose 207 H Physical Exam Narrative alert, oriented x3, no apparent distress and healthy appearing General Appearance: cooperative, well kempt and well developed Orientation / Consciousness: awake, oriented to person, oriented to place and oriented to time HEENT normocephalic, head/scalp atraumatic and moist oral mucous membranes Eyes PERRL, EOMs intact bilaterally and conjunctivae normal Neck supple, no JVD, thyroid normal and no carotid bruits General: trachea midline Resp normal respiratory effort, no retractions, no use of accessory muscles and clear to auscultation bilaterally Auscultation: Negative for rales, rhonchi or wheezes Cardio regular rate, regular rhythm, S1 normal heart sound, S2 normal heart sound, no murmurs, no rub and no gallops GI normal to inspection, nondistended, normoactive bowel sounds, soft to palpation, non-tender and non-distended Neuro oriented x3, CN's II-XII intact bilaterally, moves all extremities, no focal motor deficits and no sensory deficits noted Sensorium / Orientation: awake and alert Speech: speech normal Psych affect normal Assessment & Plan Assessment/Plan (1) Instability of right hip joint: PLAN: Plan 1. 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-postop day #2 right posterior total hip revision acetabular and femoral components-patient will continue to be seen by PT and OT, orthopedic surgery participating in her care, she will need placement for short-term skilled services, this is pending at this time #2 essential hypertension-continue hydrochlorothiazide, lisinopril, and metoprolol #3 type 2 diabetes-patient will continue on metformin, blood sugars will be monitored Malnutrition does not exist and has been ruled out Total clinical time spent by myself addressing the patient's medical issues, reviewing all of her data, and collaborating with patient's care team: 25 minutes Charges/Coding Visit Charges Inpatient E&M: 72701 Subs Hosp L1
[2023-07-18] MEDS: oxyCODONE 5 MG Tablet PO (17:57)
[2023-07-18 18:12] LABS: Bedside Glucose 140 mg/dL (74-106)
[2023-07-18 20:55] VITALS: BP 137/72; PULSE 77; RESP 18; TEMP 36.9; O2SAT 96
[2023-07-18] MEDS: Atorvastatin Calcium 10 MG Tablet PO (21:00)
[2023-07-18] MEDS: 0.9% Saline Lock 10 ML Syringe IV (21:02)
[2023-07-18 21:34] LABS: Bedside Glucose 192 mg/dL (74-106)
[2023-07-19 05:45] VITALS: BP 165/73; PULSE 80; RESP 18; TEMP 37.1; O2SAT 97
[2023-07-19] MEDS: Insulin Lispro 100 UNIT/ML INSULN.PEN SC ×2 (05:50→12:28)
[2023-07-19] MEDS: Acetaminophen 500 MG Tablet 1000 MG PO ×2 (05:51→14:08)
[2023-07-19 06:17] LABS: Bedside Glucose 161 mg/dL (74-106)
[2023-07-19 06:41] VITALS: BP 148/67; PULSE 68
[2023-07-19 07:30] VITALS: O2SAT 95
[2023-07-19 10:18] VITALS: BP 145/68; PULSE 100; RESP 18; TEMP 36.9; O2SAT 96
[2023-07-19] MEDS: metFORMIN HCl 500 MG Tablet PO (10:19)
[2023-07-19] MEDS: Folic Acid 1 MG Tablet PO (10:19)
[2023-07-19] MEDS: hydroCHLOROthiazide 25 MG Tablet PO (10:20)
[2023-07-19] MEDS: Lisinopril 20 MG Tablet PO (10:20)
[2023-07-19] MEDS: Senna/Docusate Sodium 1 Tablet 2 TABLET PO (10:20)
[2023-07-19 10:21] VITALS: PULSE 100
[2023-07-19] MEDS: Metoprolol(XL)Succ 100 MG Tablet PO (10:21)
[2023-07-19] MEDS: Aspirin 81 MG TAB.CHEW PO (10:21)
--- NOTE | 2023-07-19 10:49 | PCM.TXEXTCAR ---
Diet Diet Order/Speech Therapy: 07/16/23 13:57 Diet: Regular - 1800 mitch ADA Is pt able to select menu?: Yes Routine Orders/Code Status Routine Lab Work: - (Fingerstick blood sugars fasting and 4 PM daily-notify attending if blood sugar is over 180) Wound(s) left abd fold: Wound Type: Abrasion R abdominal fold-small open area: Wound Type: Surgical Incision Right hip: Wound Type: Strict posterior hip dislocation precautions Dressing Change: Remove outer dressing on 07/21/2023, remove Mepilex dressing on 07/22/2023, Therapies Weight Bearing: Weight bearing as tolerated (With walker x6 weeks with strict posterior hip dislocation precautions) Physical Therapy: Eval and Treat Occupational Therapy: Eval and Treat Problem/Diagnosis (1) Instability of right hip joint: Status: Acute Code(s): M25.351 - Other instability, right hip (2) History of revision of total replacement of right hip joint: Status: Acute Code(s): Z96.641 - Presence of right artificial hip joint Plan 1. 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-postop day #3 right posterior total hip revision acetabular and femoral components-patient will continue to be seen by PT and OT, orthopedic surgery participating in her care, she will need placement for short-term skilled services, this is pending at this time #2 essential hypertension-continue hydrochlorothiazide, lisinopril, and metoprolol #3 type 2 diabetes-patient will continue on metformin, blood sugars will be monitored #4 postop anemia secondary to expected blood loss from procedure-patient does not need transfused, she is currently receiving oral iron supplements Malnutrition does not exist and has been ruled out Total clinical time spent by myself addressing the patient's medical issues, reviewing all of her data, and collaborating with patient's care team: 25 minutes Allergies/Procedures Done in Hospital Allergies No Known Allergies Allergy (Verified 07/15/23 04:38) Procedures: - (Right posterior total hip revision acetabular and femoral components-07/16/2023) Type of Care/Length of Stay Estimated LOS: Convalescent Care Less Than 30 days Type of Care Needed: Skilled Rehab Potential: Good Prognosis: Good Additional Orders/Day of Discharge H&P will serve as current which was dated: 07/15/23 Day of Discharge: 07/19/23 Dietary and Speech Recommendations Dietitian Recommendations/Changes: Continue regular diet as tolerated; consider CHO controlled diet if hyperglycemia evident, will defer at this time Discharge Plan Admission Admit Date/Time: 07/15/23 15:50 Primary Reason for Your Visit: Revision of total replacement of right hip joint Attending Provider: Manolo Hassan Consulting Providers: Osmel Rowe; Ruslan Pandey; Juanjose Cordero Instructions Additional Instructions / Restrictions: Dressing: The Mepilex dressing will remain on for 5 days postoperatively. Dressing can be removed on July 21, 2023. Patient is able to shower and get the dressing wet as long as it remains intact. She is not to submerge underwater for 6 weeks postoperatively. Once removal of the dressing only apply gentle soap and water over the incision. She was instructed not to use any ointments, salves, topicals, Neosporin for 6 weeks postoperatively. Physical therapy: Weightbearing as tolerated with walker. Continue with walker for 6 weeks postoperatively to reduce abductor strain. Continue posterior hip dislocation precautions for 3 months postoperatively. Discharge Orders/Prescriptions Prescriptions: New miconazole nitrate [Desenex] 2 % Powder 1 applic topical BID Qty: 0 0RF Protocol: *Topical Application Instructions APPLICATION INSTRUCTIONS: abdominal folds, under breasts, groin acetaminophen 500 mg Tablet 1,000 mg PO Q8 Qty: 0 0RF ferrous sulfate [FeroSul] 325 mg (65 mg iron) Tablet 325 mg PO 1200,1700 Qty: 0 0RF aspirin 81 mg Tablet,Chewable 81 mg PO BIDCM Qty: 0 0RF Rx Instructions: Use for 4 weeks folic acid 1 mg Tablet 1 mg PO BREAKFAST Qty: 0 0RF oxycodone 5 mg Tablet 5 mg PO Q4H PRN PRN (Reason: Pain Score 4-10) 3 Days Qty: 10 0RF sennosides-docusate sodium [Stool Softener-Stimulant Laxat] 8.6-50 mg Tablet 2 tab PO BID Qty: 0 0RF Continued metformin 500 mg tablet 500 mg PO BID Patient Comments: TAKE TWO TABLETS BY MOUTH EVERY MORNING and TAKE ONE TABLET BY MOUTH EVERY EVENING atorvastatin 10 mg tablet 10 mg PO DAILY Patient Comments: TAKE ONE TABLET BY MOUTH DAILY lisinopril 20 mg tablet 20 mg PO BID Patient Comments: TAKE ONE TABLET BY MOUTH TWICE DAILY metoprolol succinate 100 mg tablet extended release 24 hr 100 mg PO DAILY Patient Comments: TAKE ONE TABLET BY MOUTH DAILY hydrochlorothiazide 25 mg tablet 25 mg PO DAILY Patient Comments: TAKE ONE TABLET BY MOUTH DAILY Referrals / Follow Up: Edison Darby MD [Med Staff - Active Staff] - 07/31/23 3:15 pm Disposition Disposition (needs filled in before D/C Order can be placed): [facility] Facility
--- NOTE | 2023-07-19 11:08 | DS.PCM_ITS ---
Providers Date of Admission: 07/15/23 Date of Discharge: 07/19/23 Consultations 07/15/23 06:37 Consult: Orthopedics Routine Consulting Provider: Osmel Rowe Reason for Consult: R hip dislocation EMERGENT Consult: No MD Notified: Yes Date Notified: 07/15/23 Time Notified: 06:38 Method of Notification: Verbal Reason For Visit: R HIP DISLOCATION Diagnosis Discharge Diagnosis (1) Instability of right hip joint: Status: Acute Code(s): M25.351 - Other instability, right hip (2) History of revision of total replacement of right hip joint: Status: Acute Code(s): Z96.641 - Presence of right artificial hip joint Plan 1. 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-postop day #3 right posterior total hip revision acetabular and femoral components-patient will continue to be seen by PT and OT, orthopedic surgery participating in her care, she will need placement for short-term ski lled services, this is pending at this time #2 essential hypertension-continue hydrochlorothiazide, lisinopril, and metoprolol #3 type 2 diabetes-patient will continue on metformin, blood sugars will be monitored #4 postop anemia secondary to expected blood loss from procedure-patient does not need transfused, she is currently receiving oral iron supplements Malnutrition does not exist and has been ruled out Total clinical time spent by myself addressing the patient's medical issues, reviewing all of her data, and collaborating with patient's care team: 25 minutes Medications at Discharge Home Medications atorvastatin 10 mg tablet 10 mg PO DAILY cholesterol 07/15/23 hydrochlorothiazide 25 mg tablet 25 mg PO DAILY 07/15/23 lisinopril 20 mg tablet 20 mg PO BID hypertension 07/15/23 metformin 500 mg tablet 500 mg PO BID 07/15/23 metoprolol succinate 100 mg tablet,extended release 24 hr 100 mg PO DAILY 07/15/23 acetaminophen 500 mg tablet 1,000 mg (2 x 500 mg) PO Q8 #0 tabs 07/19/23 aspirin 81 mg chewable tablet 81 mg PO BIDCM #0 tabs 07/19/23 ferrous sulfate 325 mg (65 mg iron) tablet (FeroSul) 325 mg PO 1200,1700 #0 tabs 07/19/23 folic acid 1 mg tablet 1 mg PO BREAKFAST #0 tabs 07/19/23 miconazole nitrate 2 % topical powder (Desenex) 1 applic topical BID #0 grams 07/19/23 oxycodone 5 mg tablet 5 mg PO Q4H PRN PRN Pain Score 4-10 3 days #10 tabs 07/19/23 sennosides 8.6 mg-docusate sodium 50 mg tablet (Stool Softener-Stimulant Laxative) 2 tab PO BID #0 tabs 07/19/23 Hospital Course Operations - (Right posterior total hip revision acetabular and femoral components- 07/16/2023) Procedures None Summary of Care Provided Minutes Spent on Discharge: 33 Hospital Course: This 83-year-old white female was admitted as a direct admission from [facility] with complaints of right hip pain, patient had stepped out of her vehicle with her left leg first and then she attempted to move her right leg out of the vehicle and heard a popping sound from her right hip and had excruciating pain in her right hip. Imaging studies at the outside hospital showed the patient to have a dislocated right hip. Patient was admitted to [place] [address], she was seen in consultation by orthopedic surgery, she underwent a revision of her right hip, there were no complications from her surgery, she was seen by PT and OT. She was felt to be appropriate for inpatient temporary intermediate needs at an [facility]. On 07/19/2023, patient was seen and examined: On examination she appeared in good health and spirits, she does not appear to be in any distress. Vital signs as documented. Skin warm and dry and without overt rashes. Neck without JVD, thyroid appears normal, trachea is midline, neck is supple. Lungs clear, normal air movement was noted. Heart exam notable for regular rhythm, normal sounds and absence of murmurs, rubs or gallops. Abdomen unremarkable and without evidence of organomegaly, masses, or abdominal aortic enlargement, bowel sounds are present in all 4 quadrants, no abdominal tenderness was noted. Extremities nonedematous, no cyanosis was noted, no clubbing was noted. Neuro: Cranial nerves II through XII are grossly intact, no focal motor deficits were noted, sensation to light touch and pinprick is intact, motor exam 5/5 throughout. Psych: Patient is alert and oriented x3, she does not appear anxious or depressed, she does not appear agitated. Patient appears stable for discharge to a local extended care facility for inpatient skilled services on 07/19/2023 Weight / BMI Weight Weight: 98.2 kg Body Mass Index (BMI) 39.8 ABG / Lab / Microbiology Data 07/17/23 05:50 07/17/23 05:50 Laboratory: Laboratory Results - last 24 hr 07/18/23 11:25: POC Glucose 207 H 07/18/23 16:10: POC Glucose 140 H 07/18/23 20:57: POC Glucose 192 H 07/19/23 05:49: POC Glucose 161 H Meaningful Use Info Meaningful Use Diagnoses (Choose all that apply): None applicable Discharge Plan Admission Admit Date/Time: 07/15/23 15:50 Primary Reason for Your Visit: Revision of total replacement of right hip joint Attending Provider: Manolo Hassan Consulting Providers: Osmle Rowe; Ruslan Pandey; Juanjose Cordero Instructions Additional Instructions / Restrictions: Dressing: The Mepilex dressing will remain on for 5 days postoperatively. Dressing can be removed on July 21, 2023. Patient is able to shower and get the dressing wet as long as it remains intact. She is not to submerge underwater for 6 weeks postoperatively. Once removal of the dressing only apply gentle soap and water over the incision. She was instructed not to use any ointments, salves, topicals, Neosporin for 6 weeks postoperatively. Physical therapy: Weightbearing as tolerated with walker. Continue with walker for 6 weeks postoperatively to reduce abductor strain. Continue posterior hip dislocation precautions for 3 months postoperatively. Discharge Orders/Prescriptions Prescriptions: New miconazole nitrate [Desenex] 2 % Powder 1 applic topical BID Qty: 0 0RF Protocol: *Topical Application Instructions APPLICATION INSTRUCTIONS: abdominal folds, under breasts, groin acetaminophen 500 mg Tablet 1,000 mg PO Q8 Qty: 0 0RF ferrous sulfate [FeroSul] 325 mg (65 mg iron) Tablet 325 mg PO 1200,1700 Qty: 0 0RF aspirin 81 mg Tablet,Chewable 81 mg PO BIDCM Qty: 0 0RF Rx Instructions: Use for 4 weeks folic acid 1 mg Tablet 1 mg PO BREAKFAST Qty: 0 0RF oxycodone 5 mg Tablet 5 mg PO Q4H PRN PRN (Reason: Pain Score 4-10) 3 Days Qty: 10 0RF sennosides-docusate sodium [Stool Softener-Stimulant Laxat] 8.6-50 mg Tablet 2 tab PO BID Qty: 0 0RF Continued metformin 500 mg tablet 500 mg PO BID Patient Comments: TAKE TWO TABLETS BY MOUTH EVERY MORNING and TAKE ONE TABLET BY MOUTH EVERY EVENING atorvastatin 10 mg tablet 10 mg PO DAILY Patient Comments: TAKE ONE TABLET BY MOUTH DAILY lisinopril 20 mg tablet 20 mg PO BID Patient Comments: TAKE ONE TABLET BY MOUTH TWICE DAILY metoprolol succinate 100 mg tablet extended release 24 hr 100 mg PO DAILY Patient Comments: TAKE ONE TABLET BY MOUTH DAILY hydrochlorothiazide 25 mg tablet 25 mg PO DAILY Patient Comments: TAKE ONE TABLET BY MOUTH DAILY Referrals / Follow Up: Edison Darby MD [Med Staff - Active Staff] - 07/31/23 3:15 pm Disposition Disposition (needs filled in before D/C Order can be placed): Long-Term Facility Charges/Coding Visit Charges Inpatient E&M: 91212 Disch Hosp >30min
[2023-07-19] MEDS: Ferrous Sulfate 325 MG Tablet PO (12:28)
[2023-07-19 12:55] LABS: Bedside Glucose 200 mg/dL (74-106)
--- NOTE | 2023-07-19 13:13 | CASEMGMT ---
Addendum entered and electronically signed by Hilaria Baez 07/19/23 13:22: SW - DC note addendum Clarification - [facility] documented in error. Discharge destination is to [facility] in [place]. -ROBERT Arevalo Original Note: Social Work -Discharge note Convalescent exemption form completed via the [employer], for an anticipated less than 30 day stay. Copy made for hospital chart. Discharge logistics and planning manager arranging final arrangements. PLAN: Skilled level of care at [facility], for a planned less than 30 day stay, with in-house dialysis set at the facility. -ROBERT Decker
--- NOTE | 2023-07-19 13:14 | CASEMGMT ---
Discharge Planning Discharge orders, signed med list, and transport [facility] will transport patient by wheelchair at 2p. Nursing, SW, and patient updated. Patient stated that she would update her daughter. Ana Laura Flower, Dischartge Planning Asst.
[2023-07-19 13:50] VITALS: BP 164/68; PULSE 90; RESP 18; TEMP 36.5; O2SAT 98
[2023-07-19] MEDS: oxyCODONE 5 MG Tablet PO (14:08)
--- NOTE | 2023-07-19 14:47 | NURSING ---
[facility]
== END 2023-07-19 14:14 | disposition skilled nursing facility (03) | DRG 466 ==
PROVIDERS: Emergency Medicine; Specialist; Admitting Provider Hospitalist; Visit Provider Internal Medicine
PROC: 0SP909Z Removal of Liner from Right Hip Joint, Open Approach (ICD-10-PCS; CPT 27134; principal; 2023-07-16 08:00)
DX: T84.020A Dislocation of internal right hip prosthesis, initial encounter (principal); S72.111A Displaced fracture of greater trochanter of right femur, initial encounter for closed fracture; D62 Acute posthemorrhagic anemia; E11.9 Type 2 diabetes mellitus without complications; I10 Essential (primary) hypertension; M25.351 Other instability, right hip; Z68.39 Body mass index [BMI] 39.0-39.9, adult; X50.1XXA Overexertion from prolonged static or awkward postures, initial encounter; E66.9 Obesity, unspecified; Z96.641 Presence of right artificial hip joint; Z79.84 Long term (current) use of oral hypoglycemic drugs; Z79.899 Other long term (current) drug therapy
CPT/HCPCS: 36415; 73502; 80048; 80053; 82306; 82962; 83036; 85025; 85027; 86850; 86900; 86901; 94668; 97110; 97162; 97166; 97530; 97535; 97802; 99252; C1776; J7030; A4216; G0463; J2405